=== PATIENT | female | born 1970 | race Two or more races ===

== ENCOUNTER 2019-03-21 08:10 | Outpatient (CLI) | payer OTHER ==
[~2019-03-21 08:10] MED LIST: PROZAC40 MG; SYNTHROID200 MCG
== END 2019-03-21 08:19 | disposition home or self-care (01) ==
LOC: NUCLEAR 08:10
DX: R60.0 Localized edema (principal); M79.604 Pain in right leg; M79.605 Pain in left leg; I11.9 Hypertensive heart disease without heart failure

== ENCOUNTER 2019-03-23 07:24 | Outpatient (CLI) | payer OTHER | END 2019-03-23 07:49 | disposition home or self-care (01) | LOC: NUCLEAR 07:24 | DX: R60.0 Localized edema (principal); M79.604 Pain in right leg; M79.605 Pain in left leg; I11.9 Hypertensive heart disease without heart failure; I87.2 Venous insufficiency (chronic) (peripheral); I73.9 Peripheral vascular disease, unspecified ==

== ENCOUNTER 2019-11-29 03:23 | Emergency (ER) | payer OTHER ==
[~2019-11-29] VITALS: Ht 182.9 cm; Wt 122.5 kg
[2019-11-29] MEDS ORDERED: CEFUROXIME500 MG PO (06:38)
== END 2019-11-29 08:19 | disposition home or self-care (01) ==
LOC: ER 03:23 → EDSEX 03:25 → ER 08:19
DX: N39.0 Urinary tract infection, site not specified (principal); R10.31 Right lower quadrant pain

== ENCOUNTER 2020-03-06 07:37 | Emergency (ER) | payer OTHER ==
[~2020-03-06] VITALS: Ht 182.9 cm; Wt 124.7 kg
[~2020-03-06 07:37] MED LIST changes: +CEFUROXIME500 MG PO
[2020-03-06] MEDS ORDERED: PROTONIX40 MG (07:40)
[2020-03-06] MEDS ORDERED: LASIX20 MG (07:40)
[2020-03-06] MEDS ORDERED: NORVASC5 MG (07:41)
[2020-03-06] MEDS ORDERED: SYNTHROID150 MCG (07:41)
[2020-03-06] MEDS ORDERED: LOSARTAN POTASS50 MG (07:41)
[2020-03-06] MEDS ORDERED: PROTONIX40 MG PO (13:54)
[2020-03-06] MEDS ORDERED: CARAFATE1 GM PO (13:54)
== END 2020-03-06 14:10 | disposition home or self-care (01) ==
LOC: ER 07:37
DX: K21.9 Gastro-esophageal reflux disease without esophagitis (principal)

== ENCOUNTER 2020-12-30 07:46 | Emergency (ER) | payer OTHER ==
[~2020-12-30] VITALS: Ht 182.9 cm; Wt 122.5 kg
[~2020-12-30 07:46] MED LIST changes: +CARAFATE1 GM PO; +LASIX20 MG; +LOSARTAN POTASS50 MG; +NORVASC5 MG; +PROTONIX40 MG; +PROTONIX40 MG PO; +SYNTHROID150 MCG
[2020-12-30] MEDS ORDERED: CRESTOR20 MG (07:58)
[2020-12-30] MEDS ORDERED: CYCLOBENZAPRINE10 MG PO (16:34)
[2020-12-30] MEDS ORDERED: VOLTAREN100 GM TOP (16:34)
== END 2020-12-30 16:45 | disposition home or self-care (01) ==
LOC: ER 07:46
DX: R10.11 Right upper quadrant pain (principal); K42.9 Umbilical hernia without obstruction or gangrene

== ENCOUNTER 2021-02-12 02:46 | Emergency (ER) | payer OTHER ==
[~2021-02-12] VITALS: Ht 182.9 cm; Wt 126.6 kg
[~2021-02-12 02:46] MED LIST changes: +CRESTOR20 MG; +CYCLOBENZAPRINE10 MG PO; +VOLTAREN100 GM TOP
[2021-02-12] MEDS ORDERED: KETO10TA2 PO (05:38)
[2021-02-12] MEDS ORDERED: ORPHENADRINE C100 MG PO (05:38)
[2021-02-12] MEDS ORDERED: GABAPENTIN400 MG PO (05:50)
== END 2021-02-12 06:05 | disposition home or self-care (01) ==
LOC: ER 02:46
DX: M54.5 Low back pain (principal)

== ENCOUNTER → 2021-03-14 | Emergency (ER) | payer OTHER ==
[~2021-03-14] VITALS: Ht 182.9 cm; Wt 127.0 kg
[~2021-03-14] MED LIST changes: +GABAPENTIN400 MG PO; +KETO10TA2 PO; +ORPHENADRINE C100 MG PO
== END | disposition home or self-care (01) ==
LOC: ER 16:31
DX: R10.31 Right lower quadrant pain (principal)

== ENCOUNTER 2021-09-15 10:25 | Emergency (ER) | payer OTHER ==
[~2021-09-15] VITALS: Ht 182.9 cm; Wt 122.5 kg
[2021-09-15] MEDS ORDERED: CLONAZEPAM1 MG PO (10:43)
[2021-09-15] MEDS ORDERED: RESTORIL30 M1 PO (10:43)
[2021-09-15] MEDS ORDERED: ZOFRAN8 MG PO (17:58)
== END 2021-09-15 18:17 | disposition home or self-care (01) ==
LOC: ER 10:25
DX: R10.9 Unspecified abdominal pain (principal)

== ENCOUNTER 2022-09-07 06:52 | Emergency (ER) | payer OTHER ==
[~2022-09-07] VITALS: Ht 182.9 cm; Wt 122.5 kg
[~2022-09-07 06:52] MED LIST changes: +CLONAZEPAM1 MG PO; +RESTORIL30 M1 PO; +ZOFRAN8 MG PO
[2022-09-07] MEDS ORDERED: METFORMIN HCL500 M3 (07:28)
== END 2022-09-07 11:26 | disposition home or self-care (01) ==
LOC: ER 06:52
DX: J22 Unspecified acute lower respiratory infection (principal); I10 Essential (primary) hypertension; E11.9 Type 2 diabetes mellitus without complications; Z79.84 Long term (current) use of oral hypoglycemic drugs; E03.9 Hypothyroidism, unspecified

== ENCOUNTER 2022-09-13 09:35 | Emergency (ER) | payer OTHER ==
[~2022-09-13] VITALS: Ht 182.9 cm; Wt 122.5 kg
[~2022-09-13 09:35] MED LIST changes: +METFORMIN HCL500 M3
[2022-09-15] MEDS ORDERED: PANTOPRAZOLE SO40 MG (10:41)
[2022-09-15] MEDS ORDERED: IPRATROPIU0.2 MG/1 M IH (15:55)
[2022-09-15] MEDS ORDERED: XOPENEX CO1.25 MG/0. IH (15:55)
[2022-09-15] MEDS ORDERED: GUAIFENESIN-CO473 ML PO (15:55)
[2022-09-15] MEDS ORDERED: MOLNUPIRAVIR (200 MG PO (15:55)
== END 2022-09-13 13:24 | disposition home or self-care (01) ==
LOC: ER 09:35
DX: J45.909 Unspecified asthma, uncomplicated (principal); I10 Essential (primary) hypertension; E11.9 Type 2 diabetes mellitus without complications; Z20.822 Contact with and (suspected) exposure to COVID-19

== ENCOUNTER → 2022-09-15 | Emergency (ER) | payer OTHER ==
[~2022-09-15] VITALS: Ht 182.9 cm; Wt 122.5 kg
[~2022-09-15] MED LIST changes: +GUAIFENESIN-CO473 ML PO; +IPRATROPIU0.2 MG/1 M IH; +MOLNUPIRAVIR (200 MG PO; +PANTOPRAZOLE SO40 MG; +XOPENEX CO1.25 MG/0. IH
== END | disposition home or self-care (01) ==
LOC: ER 10:29
DX: U07.1 COVID-19 (principal); J45.909 Unspecified asthma, uncomplicated; I10 Essential (primary) hypertension; F41.1 Generalized anxiety disorder

== ENCOUNTER 2022-09-25 07:16 | Emergency (ER) | payer OTHER ==
[~2022-09-25] VITALS: Ht 182.9 cm; Wt 122.5 kg
== END 2022-09-25 15:52 | disposition home or self-care (01) ==
LOC: ER 07:16
DX: J45.901 Unspecified asthma with (acute) exacerbation (principal); Z20.822 Contact with and (suspected) exposure to COVID-19

== ENCOUNTER 2023-08-08 10:39 | Emergency (ER) | payer OTHER ==
[~2023-08-08] VITALS: Ht 182.9 cm; Wt 127.0 kg
[2023-08-08 12:35] LABS: HEMATOCRIT 41.5 % (39.0-48.0); MEAN CELL VOLUME 93.2 fL (80.0-100.00); MEAN CORPUSCULAR HEMOGLOBIN 31.5 pg (27.00-32.0); MEAN CORPUSCULAR HGB CONC 33.8 g/dl (32.0-36.0); PLATELET COUNT 197 K/uL (150-450); RED BLOOD COUNT 4.45 M/uL (4.00-6.00)
[2023-08-08 12:56] LABS: PH,URINE 5.5 (5.0-8.0); URINE APPEARANCE Cloudy; URINE BILIRRUBIN Negative (NEGATIVE); URINE BLOOD Negative; URINE COLOR Yellow; URINE GLUCOSE Negative (NEGATIVE); URINE LEUKOCYTE Negative; URINE NITRATE Negative; URINE PROTEIN Trace (NEGATIVE)
[2023-08-08 12:58] LABS: URINE BACTERIA 15.1 uL (0.0-1933); URINE EPITHELIAL CELLS 9.4 uL (0.0-38.8); URINE RBC 7.3 uL (0.0-20.8); URINE WBC 3.8 uL (0.0-23.2)
[2023-08-08 13:00] LABS: ALBUMIN 3.5 gm/dL (3.4-5.0); BILIRUBIN TOTAL 0.33 mg/dL (0.3-1.2); BILIRUBIN,CONJUGATED 0.14 mg/dL (0.0-0.2); BILIRUBIN,UNCONJUGATED 0.19 mg/dL (0.0-0.6); CALCIUM 8.4 mg/dL (8.5-10.1); CREATININE SERUM 1.49 mg/dL (0.70-1.30); GFR 49.15; POTASSIUM 3.94 mEq/L (3.5-5.1)
== END 2023-08-08 16:18 | disposition home or self-care (01) ==
LOC: ER 10:40
PROVIDERS: General Practice
DX: J10.1 Influenza due to other identified influenza virus with other respiratory manifestations (principal); R53.83 Other fatigue; Z20.822 Contact with and (suspected) exposure to COVID-19; I10 Essential (primary) hypertension; E03.8 Other specified hypothyroidism; E11.9 Type 2 diabetes mellitus without complications; Z79.84 Long term (current) use of oral hypoglycemic drugs

== ENCOUNTER 2025-02-08 11:28 | Emergency (ER) | payer OTHER ==
[~2025-02-08] VITALS: Ht 182.9 cm; Wt 142.9 kg
[~2025-02-08 11:28] MED LIST changes: +LOVAZA1 GM; +ONDANSETRON ODT8 MG PO; +PEPCID AC20 MG PO
[2025-02-08] MEDS ORDERED: RESTORIL30 MG PO (11:55)
[2025-02-08] MEDS ORDERED: ROSUVASTATIN CAL5 MG PO (11:55)
[2025-02-08] MEDS ORDERED: METFORMIN HCL500 M1 PO (11:55)
[2025-02-08] MEDS ORDERED: OMEGA-3 ACID ETH1 GM PO (11:55)
[2025-02-08] MEDS ORDERED: AMLODIPINE BESYL5 MG PO (11:56)
[2025-02-08] MEDS ORDERED: SYNTHROID200 MCG PO (11:56)
[2025-02-08] MEDS ORDERED: FLUOXETINE HCL20 M1 PO (11:56)
[2025-02-08] MEDS ORDERED: 0.9 % SODIUM CHLORIDE 1,000 ML IV STA (12:21)
[2025-02-08 12:56] LABS: BASO % 1.1 % (0.1-1.2); EOS # 0.15 (0.04-0.54); EOS % 1.8 % (0.7-7.0); LYMPH # 2.60 (1.18-3.74); LYMPH % 30.3 % (19.3-53.1); MEAN PLATELET VOLUME 9.60 fl (9.4-12.4); MONO # 0.82 (0.24-0.82); MONO % 9.6 % (4.7-12.5); NEUT # 4.84 (1.56-6.13); NEUT % 56.4 % (34.0-71.1); RED CELL DISTRIBUTION WIDTH 13.1 % (11.6-14.4)
[2025-02-08 13:17] LABS: BUN CREA RATIO 14.0 (7.0-25.0); CREATININE SERUM 1.2 mg/dL (0.70-1.30); GFR 62.63; GLUCOSE FASTING 106.0 mg/dL (65-100); OSMOLALITY SERUM 278.0 MOSM/KG (275-295)
[2025-02-08 13:29] LABS: URINE APPEARANCE Clear; URINE BILIRRUBIN Negative (NEGATIVE); URINE BLOOD Negative; URINE COLOR Yellow; URINE GLUCOSE Negative (NEGATIVE); URINE KETONE Negative (NEGATIVE); URINE LEUKOCYTE Negative; URINE NITRATE Negative; URINE PROTEIN Negative (NEGATIVE); URINE UROBILINOGEN 0.2 E.U./dl
[2025-02-08 13:30] LABS: URINE RBC 7.7 uL (0.0-20.8)
[2025-02-08 13:35] LABS: URINE BACTERIA 2.3 uL (0.0-1933); URINE CAST 0.00 uL (0.0-1.40); URINE EPITHELIAL CELLS 0.6 uL (0.0-38.8); URINE WBC 1.0 uL (0.0-23.2)
[2025-02-08] MEDS ORDERED: FAMOTIDINE/PF 20 MG in 0.9 % SODIUM CHLORIDE 8 ML IV PUSH STA (15:54)
[2025-02-08] MEDS ORDERED: KETOROLAC TROMETHAMINE 30 MG VIAL IV ONE (16:00)
[2025-02-08] MEDS ORDERED: LEVSIN/SL0.125 MG SL (18:50)
== END 2025-02-08 19:06 | disposition home or self-care (01) ==
LOC: ER 12:28
PROVIDERS: Emergency Medicine
DX: K29.70 Gastritis, unspecified, without bleeding (principal); R11.2 Nausea with vomiting, unspecified; R10.9 Unspecified abdominal pain; I10 Essential (primary) hypertension; E03.8 Other specified hypothyroidism; E11.9 Type 2 diabetes mellitus without complications; Z79.84 Long term (current) use of oral hypoglycemic drugs
CPT/HCPCS: 36415; 74177; Q9965

== ENCOUNTER 2025-05-04 07:30 | Emergency (ER) | payer OTHER ==
[~2025-05-04] VITALS: Ht 182.9 cm; Wt 145.1 kg
[~2025-05-04 07:30] MED LIST changes: +AMLODIPINE BESYL5 MG PO; +FLUOXETINE HCL20 M1 PO; +LEVSIN/SL0.125 MG SL; +METFORMIN HCL500 M1 PO; +OMEGA-3 ACID ETH1 GM PO; +RESTORIL30 MG PO; +ROSUVASTATIN CAL5 MG PO; +SYNTHROID200 MCG PO
[2025-05-04] MEDS ORDERED: KETOROLAC TROMETHAMINE 30 MG VIAL IM STA (08:39)
[2025-05-04] MEDS ORDERED: FAMOTIDINE/PF 20 MG/2 ML VIAL IV STA (08:40)
[2025-05-04] MEDS ORDERED: KETOROLAC TROMETHAMINE 30 MG VIAL ONE (08:44)
[2025-05-04] MEDS ORDERED: FAMOTIDINE/PF 20 MG/2 ML VIAL ONE (08:45)
[2025-05-04 09:07] LABS: BASO % 1.0 % (0.1-1.2); EOS # 0.14 (0.04-0.54); EOS % 1.8 % (0.7-7.0); LYMPH # 2.16 (1.18-3.74); LYMPH % 28.0 % (19.3-53.1); MEAN PLATELET VOLUME 9.50 fl (9.4-12.4); MONO # 0.73 (0.24-0.82); MONO % 9.5 % (4.7-12.5); NEUT # 4.52 (1.56-6.13); NEUT % 58.7 % (34.0-71.1); RED CELL DISTRIBUTION WIDTH 13.1 % (11.6-14.4)
[2025-05-04 09:34] LABS: URINE APPEARANCE Clear; URINE BILIRRUBIN Negative (NEGATIVE); URINE BLOOD Negative; URINE COLOR Yellow; URINE GLUCOSE Negative (NEGATIVE); URINE KETONE Negative (NEGATIVE); URINE LEUKOCYTE Negative; URINE NITRATE Negative; URINE PROTEIN Negative (NEGATIVE); URINE UROBILINOGEN 0.2 E.U./dl
[2025-05-04 09:38] LABS: URINE RBC 5.7 uL (0.0-20.8)
[2025-05-04 10:14] LABS: ALT/SGPT 45.0 U/L (12-78); AST/SGOT 29.0 U/L (15-37); BILIRUBIN TOTAL 0.59 mg/dL (0.3-1.2); BUN CREA RATIO 14.0 (7.0-25.0); CREATININE SERUM 1.11 mg/dL (0.70-1.30); GFR 68.53; GLOBULINA 3.6 G/DL (2.4-3.5); GLUCOSE FASTING 118.0 mg/dL (65-100); OSMOLALITY SERUM 278.0 MOSM/KG (275-295)
[2025-05-04 10:50] LABS: URINE BACTERIA 1.1 uL (0.0-1933); URINE CAST 0.00 uL (0.0-1.40); URINE EPITHELIAL CELLS 0.6 uL (0.0-38.8); URINE WBC 0.4 uL (0.0-23.2)
[2025-05-04] MEDS ORDERED: ORPHENADRINE CITRATE 30 MG/ML AMPUL IM STA (12:11)
[2025-05-04] MEDS ORDERED: ORPHENADRINE CITRATE 30 MG/ML AMPUL ONE (12:13)
[2025-05-04] MEDS ORDERED: NABUMETONE750 MG PO (12:17)
[2025-05-04] MEDS ORDERED: ZANAFLEX4 M1 PO (12:17)
== END 2025-05-04 12:36 | disposition home or self-care (01) ==
LOC: ER 07:30
PROVIDERS: General Practice
DX: R10.12 Left upper quadrant pain (principal); M94.0 Chondrocostal junction syndrome [Tietze]

== ENCOUNTER 2025-06-20 05:30 | Emergency (ER) | payer OTHER ==
[~2025-06-20] VITALS: Ht 182.9 cm; Wt 139.3 kg
[~2025-06-20 05:30] MED LIST changes: +NABUMETONE750 MG PO; +ZANAFLEX4 M1 PO
[2025-06-20 06:00] VITALS: BP 127/85; O2SAT 99
[2025-06-20] MEDS ORDERED: SYNTHROID150 MCG PO (06:05)
[2025-06-20] MEDS ORDERED: CLONOPIN PO (06:07)
[2025-06-20] MEDS ORDERED: ACETAMINOPHEN 325 MG TABLET PO STA (07:22)
[2025-06-20] MEDS ORDERED: GUAIFENESIN 200 MG/10 ML BLIST.PACK PO STA (07:23)
[2025-06-20] MEDS ORDERED: GUAIFENESIN 200 MG/10 ML BLIST.PACK PO ONE (07:26)
[2025-06-20] MEDS ORDERED: ACETAMINOPHEN 500 MG GEL..CAP PO ONE (07:26)
[2025-06-20 07:51] LABS: BASO % 1.0 % (0.1-1.2); EOS # 0.42 (0.04-0.54); EOS % 4.2 % (0.7-7.0); LYMPH # 2.46 (1.18-3.74); LYMPH % 24.3 % (19.3-53.1); MEAN PLATELET VOLUME 9.30 fl (9.4-12.4); MONO # 0.89 (0.24-0.82); MONO % 8.8 % (4.7-12.5); NEUT # 6.17 (1.56-6.13); NEUT % 60.9 % (34.0-71.1); RED CELL DISTRIBUTION WIDTH 13.2 % (11.6-14.4)
[2025-06-20 08:07] LABS: COVID-19 AG NEGATIVE (NEGATIVE)
[2025-06-20] MEDS ORDERED: CEFTRIAXONE SODIUM 1,000 MG VIAL IM STA (08:35)
[2025-06-20] MEDS ORDERED: CEFTRIAXONE SODIUM 1,000 MG VIAL ONE (09:01)
[2025-06-23] MEDS ORDERED: LOSARTAN POTASS50 MG PO (14:40)
[2025-06-23] MEDS ORDERED: BENZONATATE200 M1 PO (18:31)
[2025-06-23] MEDS ORDERED: MUCINEX FAST-M180 M2 PO (18:31)
== END 2025-06-20 09:31 | disposition home or self-care (01) ==
LOC: ER 05:30
PROVIDERS: General Practice
DX: J06.9 Acute upper respiratory infection, unspecified (principal); R05.9 Cough, unspecified; Z20.822 Contact with and (suspected) exposure to COVID-19; I10 Essential (primary) hypertension; E11.9 Type 2 diabetes mellitus without complications; Z79.84 Long term (current) use of oral hypoglycemic drugs

== ENCOUNTER → 2025-06-23 | Emergency (ER) | payer OTHER ==
[~2025-06-23] VITALS: Ht 182.9 cm; Wt 139.3 kg
[~2025-06-23] MED LIST changes: +AZITHROMYCIN 500 MG VIAL IV ONE; +BENZONATATE200 M1 PO; +CLONOPIN PO; +GUAIFENESIN 200 MG/10 ML BLIST.PACK PO ONE; +IPRATROPIUM BROMIDE 0.5 MG/2.5 ML AMPUL.NEB IH ONE; +LOSARTAN POTASS50 MG PO; +MUCINEX FAST-M180 M2 PO; +SYNTHROID150 MCG PO
[2025-06-23 16:41] LABS: BASO % 0.9 % (0.1-1.2); EOS # 0.27 (0.04-0.54); EOS % 3.1 % (0.7-7.0); LYMPH # 2.30 (1.18-3.74); LYMPH % 26.7 % (19.3-53.1); MEAN PLATELET VOLUME 9.90 fl (9.4-12.4); MONO # 0.59 (0.24-0.82); MONO % 6.8 % (4.7-12.5); NEUT # 5.31 (1.56-6.13); NEUT % 61.6 % (34.0-71.1); RED CELL DISTRIBUTION WIDTH 13.3 % (11.6-14.4)
[2025-06-23 17:38] LABS: BUN CREA RATIO 16.0 (7.0-25.0); CREATININE SERUM 0.93 mg/dL (0.70-1.30); GFR 84.05; GLUCOSE FASTING 103.0 mg/dL (65-100); OSMOLALITY SERUM 279.0 MOSM/KG (275-295)
[2025-06-23 17:42] LABS: COVID-19 AG NEGATIVE (NEGATIVE)
== END | disposition home or self-care (01) ==
LOC: ER 13:19
PROVIDERS: Student in an Organized Health Care Education/Training Program
DX: J20.9 Acute bronchitis, unspecified (principal); B34.9 Viral infection, unspecified; Z20.822 Contact with and (suspected) exposure to COVID-19; E11.9 Type 2 diabetes mellitus without complications; Z79.84 Long term (current) use of oral hypoglycemic drugs; I10 Essential (primary) hypertension

== ENCOUNTER 2025-07-31 23:53 | Emergency (ER) | payer OTHER ==
[~2025-07-31] VITALS: Ht 182.9 cm; Wt 145.1 kg
[~2025-07-31 23:53] MED LIST changes: -AZITHROMYCIN 500 MG VIAL IV ONE; -GUAIFENESIN 200 MG/10 ML BLIST.PACK PO ONE; -IPRATROPIUM BROMIDE 0.5 MG/2.5 ML AMPUL.NEB IH ONE
[2025-08-01 06:19] LABS: BASO % 0.7 % (0.1-1.2); EOS # 0.15 (0.04-0.54); EOS % 1.2 % (0.7-7.0); LYMPH # 3.70 (1.18-3.74); LYMPH % 30.3 % (19.3-53.1); MEAN PLATELET VOLUME 10.30 fl (9.4-12.4); MONO # 1.06 (0.24-0.82); MONO % 8.7 % (4.7-12.5); NEUT # 7.08 (1.56-6.13); NEUT % 58.0 % (34.0-71.1); RED CELL DISTRIBUTION WIDTH 13.0 % (11.6-14.4)
[2025-08-01 06:32] LABS: URINE APPEARANCE Clear; URINE BILIRRUBIN Negative (NEGATIVE); URINE BLOOD Negative; URINE COLOR Yellow; URINE GLUCOSE Negative (NEGATIVE); URINE KETONE Negative (NEGATIVE); URINE LEUKOCYTE Negative; URINE NITRATE Negative; URINE PROTEIN Negative (NEGATIVE); URINE UROBILINOGEN 0.2 E.U./dl
[2025-08-01 06:35] LABS: URINE RBC 7.2 uL (0.0-20.8)
[2025-08-01 06:47] LABS: ALT/SGPT 51.0 U/L (12-78); AST/SGOT 30.0 U/L (15-37); BILIRUBIN TOTAL 0.46 mg/dL (0.3-1.2); BUN CREA RATIO 14.0 (7.0-25.0); CREATININE SERUM 1.09 mg/dL (0.70-1.30); GFR 69.98; GLOBULINA 3.6 G/DL (2.4-3.5); GLUCOSE FASTING 107.0 mg/dL (65-100); OSMOLALITY SERUM 279.0 MOSM/KG (275-295)
[2025-08-01 06:56] LABS: URINE BACTERIA 1.1 uL (0.0-1933); URINE CAST 0.00 uL (0.0-1.40); URINE EPITHELIAL CELLS 0.3 uL (0.0-38.8); URINE WBC 0.6 uL (0.0-23.2)
[2025-08-01 08:37] VITALS: BP 140/80; O2SAT 100
== END 2025-08-01 08:38 | disposition home or self-care (01) ==
LOC: ER 23:53
PROVIDERS: General Practice
DX: R06.02 Shortness of breath (principal); E11.9 Type 2 diabetes mellitus without complications; Z79.84 Long term (current) use of oral hypoglycemic drugs; I10 Essential (primary) hypertension